=== PATIENT | female | born 1980 | race Caucasian/White ===

== ENCOUNTER 2019-06-16 06:50 | Emergency (ER) | payer SELFPAY ==
[~2019-06-16] VITALS: Ht 162.6 cm; Wt 101.0 kg
[~2019-06-16 06:50] MED LIST: ACET325T9 PO; ALBU8.5H6 IH; IBUP200T58 PO; MELO7.5T29 PO; PRED50TA PO; TAGAMENT; [UNRECOGNIZED DRUG - CODE] PO
[2019-06-16 07:01] VITALS: BP 139/93
[2019-06-16] MEDS ORDERED: TRAM50TA PO (07:17)
[2019-06-16] MEDS ORDERED: DICL50TA4 PO (07:17)
[2019-06-16] MEDS ORDERED: ORPH-16 PO (07:17)
--- NOTE | 2019-06-16 07:17 | PHYS DOC ---
Past History Past Medical History: No Pertinent History, GERD Past Surgical History: Other Additional Past Surgical Histo: abd exploratory lap Smoking: Cigarettes Alcohol Use: Occasionally Drug Use: Marijuana, Other Adult General Chief Complaint Chief Complaint: BACK PAIN - NO INJURY [facility] HPI Patient is a 38-year-old female who presents with complaint of lower back pain that started on Saturday. Patient states that she had just woken up with the pain. She denies any recent injuries and states that she has not been lifting anything heavy. She states that she just woke up with the pain. Patient states that she had hoped that by resting this week and the pain would resolve but she continues to have a lot of pain in her lower back and states that the pain is worsened if she tries to bend over. She rates pain at an 8 out of 10. She denies any loss of bowel or bladder control. She denies any saddle anesthesia.[] Review of Systems Review of Systems Constitutional: Denies fever or chills [] Respiratory: Denies cough or shortness of breath [] Cardiovascular: No additional information not addressed in HPI [] GI: Denies abdominal pain, nausea, vomiting, bloody stools or diarrhea [] : Denies dysuria or hematuria [] Musculoskeletal: Complains of lower back pain [] Integument: Denies rash or skin lesions [] Neurologic: Denies headache, focal weakness or sensory changes [] Allergies Allergies Allergies Coded Allergies Type Severity Reaction Last Updated Verified No Known Drug Allergies 08/26/14 No Physical Exam Physical Exam Constitutional: Well developed, well nourished, no acute distress, non-toxic appearance. [] Cardiovascular:Heart rate regular rhythm, no murmur [] Lungs & Thorax: Bilateral breath sounds clear to auscultation [] Skin: Warm, dry, no erythema, no rash. [] Back: There is tenderness to palpation in the lower lumbar paraspinal musculature bilaterally and significant tenderness in the right sacral sulcus. [] Extremities: No tenderness, no cyanosis, no clubbing, ROM intact. [] Neurologic: Alert and oriented X 3, no focal deficits noted. [] Current Patient Data Vital Signs Vital Signs Date Time Temp Pulse Resp B/P (MAP) Pulse Ox O2 Delivery O2 Flow Rate FiO2 06/16/ 07:01 98.2 100 18 139/93 (108) 100 Room Air EKG EKG [] Radiology/Procedures Radiology/Procedures [] Course & Med Decision Making Course & Med Decision Making Pertinent Labs and Imaging studies reviewed. (See chart for details) [] Dragon Disclaimer Dragon Disclaimer This electronic medical record was generated, in whole or in part, using a voice recognition dictation system. Departure Departure: Impression: Primary Impression: Acute low back pain Disposition: HOME, SELF-CARE Condition: STABLE Referrals: PCP,NO (PCP) Patient Instructions: Back Pain, Adult, Form - Excuse from Work, School, or Physical Activity Scripts Tramadol Hcl (TRAMADOL HCL) 50 Mg Tablet 50 MG PO PRN Q6HRS PRN for PAIN, #12 TAB Prov: MANOLO BUENROSTRO Jr. DO 06/16/19 Orphenadrine Citrate (ORPHENADRINE CITRATE) 100 Mg Tablet.er 1 TAB PO BID PRN for MUSCLE SPASMS, #14 TAB Prov: MANOLO BUENROSTRO Jr. DO 06/16/19 Diclofenac Sodium (DICLOFENAC SODIUM) 50 Mg Tablet.dr 1 TAB PO BID PRN for PAIN, #20 TAB Prov: MANOLO BUENROSTRO Jr. DO 06/16/19 Problem Qualifiers Primary Impression: Acute low back pain Back pain laterality: bilateral Sciatica presence: without sciatica Qualified Codes: M54.5 - Low back pain MANOLO BUENROSTRO Jr. DO Jun 16, 2019 07:17
[2019-06-16] MEDS ORDERED: ORPHENADRINE CITRATE 60 MG/2 ML VIAL. IM ONE (07:30)
[2019-06-16] MEDS ORDERED: KETOROLAC 60 MG/2 ML VIAL. IM ONE (07:30)
== END 2019-06-16 07:38 | disposition home or self-care (01) ==
LOC: ER 06:50
DX: M54.5 Low back pain (principal); K21.9 Gastro-esophageal reflux disease without esophagitis; F17.210 Nicotine dependence, cigarettes, uncomplicated
CPT/HCPCS: 96372; 99284; J1885; J2360

== ENCOUNTER 2019-12-09 20:58 | Emergency (ER) | payer SELFPAY ==
[~2019-12-09] VITALS: Ht 160 cm; Wt 100.0 kg
[~2019-12-09 20:58] MED LIST changes: +DICL50TA4 PO; +ORPH-16 PO; +TRAM50TA PO
[2019-12-09] MEDS ORDERED: IV NORMAL SALINE 1,000ML 1,000 ML IV ONE (21:15)
[2019-12-09] MEDS ORDERED: MORPHINE SULFATE 2 MG/ML DISP.SYRIN. IV ONE (21:15)
[2019-12-09] MEDS ORDERED: ONDANSETRON PF 4 MG/2 ML VIAL. IVP ONE ×2 (21:15→23:30)
[2019-12-09] MEDS ORDERED: IOHEXOL 300 MG/ML 75 ML VIAL. IV ONE (21:45)
[2019-12-09 21:46] LABS: BASO % 0 % (0-3); EOS % 0 % (0-3); HEMATOCRIT 42.1 % (36.0-47.0); HEMOGLOBIN 14.1 g/dL (12.0-15.5); LYMPH # 0.9 x10^3/uL (1.0-4.8); LYMPH % 7 % (24-48); MEAN CORPUSCULAR HEMOGLOBIN 30 pg (25-35); MEAN CORPUSCULAR HGB CONC 34 g/dL (31-37); MEAN CORPUSCULAR VOLUME 91 fL (79-100); MONO # 0.4 x10^3/uL (0.0-1.1); MONO % 3 % (0-9); NEUT # 11.7 x10^3uL (1.8-7.7); NEUT % 90 % (31-73); PLATELET COUNT 356 x10^3/uL (140-400); RED BLOOD COUNT 4.65 x10^6/uL (3.50-5.40); RED CELL DISTRIBUTION WIDTH 13.6 % (11.5-14.5); WHITE BLOOD COUNT 13.1 x10^3/uL (4.0-11.0)
[2019-12-09 21:53] LABS: CALCIUM 9.5 mg/dL (8.5-10.1); CREATININE 1.1 mg/dL (0.6-1.0); GFR 55.9; POTASSIUM 3.5 mmol/L (3.5-5.1)
[2019-12-09 21:54] LABS: BACTERIA,URINE 0 /HPF (0-FEW); BILIRUBIN,URINE NEG (NEG); CLARITY,URINE HAZY; COLOR,URINE YELLOW; GLUCOSE,URINE NEG (NEG); NITRITE,URINE NEG (NEG); RBC,URINE OCC /HPF (0-2); SQUAMOUS EPITHELIAL CELL,UR FEW /LPF; UROBILINOGEN,URINE 0.2 mg/dL (0.2 mg/dL)
[2019-12-09 21:59] LABS: TOTAL BILIRUBIN 0.3 mg/dL (0.2-1.0); TOTAL PROTEIN 7.9 g/dL (6.4-8.2)
[2019-12-09 22:11] LABS: % LYMPHS 12 % (24-48); % MONOS 5 % (0-10); % SEGS 83 % (35-66)
[2019-12-09 22:12] LABS: PLT ESTIMATE ADEQUATE (ADEQUATE)
[2019-12-09] MEDS ORDERED: MORPHINE SULFATE 4 MG/ML DISP.SYRIN. IV ONE (22:30)
--- NOTE | 2019-12-09 22:34 | RAD ---
CT scan of the abdomen and pelvis with contrast 12/09/2019 CLINICAL HISTORY: Epigastric pain. TECHNIQUE: After the intravenous administration of 75 cc of Omnipaque 300 only, contiguous, 5 mm axial sections were obtained through the abdomen and pelvis. One or more of the following individualized dose reduction techniques were utilized for this study: 1. Automated exposure control. 2. Adjustment of the mA and/or kV according to patient size. 3. Use of iterative reconstruction technique. FINDINGS: Comparison studies dated 08/26/2014. Images through the lung bases demonstrate minimal dependent subsegmental atelectasis bilaterally. The liver, spleen, pancreas, adrenal glands and kidneys are within normal limits. The abdominal aorta tapers normally. The gallbladder is distended. A 2.6 cm partially calcified gallstone is seen within the gallbladder near the neck. No free fluid or free air is seen within the abdomen. There is no evidence of bowel obstruction. The appendix is well-visualized and is within normal limits. Images through the pelvis demonstrate the urinary bladder distended with urine. A 6.4 cm solitary oval-shaped mass is seen in the left adnexa. A 11 cm low-attenuation mass is seen in the right adnexa which extends superiorly from the pelvis. On the previous examination the patient had a 16.6 cm adnexal mass which appeared to extend from the left adnexa. It is unclear whether these adnexal masses are new or have decreased in size since the previous examination due to treatment. Clinical correlation is recommended. No free fluid is seen. Minimal S-shaped curvature of the thoracolumbar spine is noted. IMPRESSION: 1. Cholelithiasis. 2. . Bilateral adnexal masses are seen, right greater than left. The right adnexal mass measures 11 cm in greatest diameter. On the previous examination the patient had a 16.6 cm left adnexal mass. It is unclear on today's study whether these adnexal masses have decreased in size due to treatment or are new. Clinical correlation is recommended. Electronically signed by: Steven Ricardo MD (12/09/2019 10:31 PM) [id number]
--- NOTE | 2019-12-09 22:41 | PHYS DOC ---
Past History Past Medical History: No Pertinent History, GERD Past Surgical History: Other Additional Past Surgical Histo: abd exploratory lap Smoking: Cigarettes Alcohol Use: Occasionally Drug Use: Marijuana, Other General Adult EDM: Chief Complaint: NAUSEA/VOMITING/DIARRHEA HPI: HPI: 39-year-old female presents with epigastric abdominal pain. Patient states that the pain started around 1:30 PM. She then started vomiting around 2:30 PM. This is continued until arrival in the emergency room. She is vomiting in the ER. The patient is a unable to keep down any liquids or solids. She believes that the vomiting is due to the pain. It is a deep cramping sensation. No history of pancreatitis. She still has her gallbladder. She rates the pain 8 out of 10. She denies fever or chills. Review of Systems: Review of Systems: Constitutional: Denies fever or chills Eyes: Denies change in visual acuity HENT: Denies nasal congestion or sore throat Respiratory: Denies cough or shortness of breath Cardiovascular: Denies chest pain or edema GI: Epigastric abdominal pain, nausea, vomiting. Denies bloody stools or diarrhea : Denies dysuria Musculoskeletal: Denies back pain or joint pain Integument: Denies rash Neurologic: Denies headache, focal weakness or sensory changes Endocrine: Denies polyuria or polydipsia Lymphatic: Denies swollen glands Psychiatric: Denies depression or anxiety Heart Score: Risk Factors: Risk Factors: DM, Current or recent (<one month) smoker, HTN, HLP, family history of CAD, obesity. Risk Scores: Score 0 - 3: 2.5% MACE over next 6 weeks - Discharge Home Score 4 - 6: 20.3% MACE over next 6 weeks - Admit for Clinical Observation Score 7 - 10: 72.7% MACE over next 6 weeks - Early Invasive Strategies Current Medications: Current Meds: Current Medications Medications (Trade) Dose Ordered Sig/Max Start Time Stop Time Status Last Admin Dose Admin Iohexol (Omnipaque 300 Mg/ml) 75 ml 1X ONCE 12/09/19 21:45 12/09/19 21:46 DC 12/09/19 21:48 75 ML Morphine Sulfate (Morphine 2mg Syringe) 2 mg 1X ONCE 12/09/19 21:15 12/09/19 21:17 DC 12/09/19 21:27 2 MG Morphine Sulfate (Morphine 4mg Syringe) 4 mg 1X ONCE 12/09/19 22:30 12/09/19 22:31 DC 12/09/19 22:31 4 MG Ondansetron HCl (Zofran) 4 mg 1X ONCE 12/09/19 21:15 12/09/19 21:17 DC 12/09/19 21:26 4 MG Sodium Chloride 1,000 ml @ 1,000 mls/hr 1X ONCE 12/09/19 21:15 12/09/19 22:14 DC 12/09/19 21:27 1,000 MLS/HR Allergies: Allergies: Allergies Coded Allergies Type Severity Reaction Last Updated Verified No Known Drug Allergies 08/26/14 No Physical Exam: PE: Constitutional: Well developed, obese, well nourished, no acute distress, non- toxic appearance. [] HENT: Normocephalic, atraumatic, bilateral external ears normal, oropharynx moist, no oral exudates, nose normal. [] Eyes: PERRLA, EOMI, conjunctiva normal, no discharge. [] Neck: Normal range of motion, no tenderness, supple, no stridor. [] Cardiovascular: Heart rate regular rhythm, no murmur [] Lungs & Thorax: Bilateral breath sounds clear to auscultation [] Abdomen: Bowel sounds normal, soft, moderate epigastric tenderness, no masses, no pulsatile masses. [] Skin: Warm, dry, no erythema, no rash. [] Back: No tenderness, no CVA tenderness. [] Extremities: No tenderness, no cyanosis, no clubbing, ROM intact, no edema. [] Neurologic: Alert and oriented X 3, normal motor function, normal sensory function, no focal deficits noted. [] Psychologic: Affect normal, judgement normal, mood normal. [] Current Patient Data: Labs: Laboratory Tests Test 12/09/19 21:00 12/09/19 21:23 12/09/19 21:30 Urine Collection Type Unknown Urine Color Yellow Urine Clarity Hazy Urine pH 6.0 Urine Specific [place] >=1.030 Urine Protein 30 mg/dl (NEG-TRACE) Urine Glucose (UA) Neg mg/dL (NEG) Urine Ketones (Stick) 15 mg/dL (NEG) Urine Blood Trace (NEG) Urine Nitrite Neg (NEG) Urine Bilirubin Neg (NEG) Urine Urobilinogen Dipstick 0.2 mg/dL (0.2 mg/dL) Urine Leukocyte Esterase Neg (NEG) Urine RBC Occ /HPF (0-2) Urine WBC 1-4 /HPF (0-4) Urine Squamous Epithelial Cells Few /LPF Urine Bacteria 0 /HPF (0-FEW) Urine Mucus Marked /LPF POC Urine HCG, Qualitative hcg negative (Negative) White Blood Count 13.1 x10^3/uL (4.0-11.0) H Red Blood Count 4.65 x10^6/uL (3.50-5.40) Hemoglobin 14.1 g/dL (12.0-15.5) Hematocrit 42.1 % (36.0-47.0) Mean Corpuscular Volume 91 fL (79-100) Mean Corpuscular Hemoglobin 30 pg (25-35) Mean Corpuscular Hemoglobin Concent 34 g/dL (31-37) Red Cell Distribution Width 13.6 % (11.5-14.5) Platelet Count 356 x10^3/uL (140-400) Neutrophils (%) (Auto) 90 % (31-73) H Lymphocytes (%) (Auto) 7 % (24-48) L Monocytes (%) (Auto) 3 % (0-9) Eosinophils (%) (Auto) 0 % (0-3) Basophils (%) (Auto) 0 % (0-3) Neutrophils # (Auto) 11.7 x10^3uL (1.8-7.7) H Lymphocytes # (Auto) 0.9 x10^3/uL (1.0-4.8) L Monocytes # (Auto) 0.4 x10^3/uL (0.0-1.1) Eosinophils # (Auto) 0.0 x10^3/uL (0.0-0.7) Basophils # (Auto) 0.0 x10^3/uL (0.0-0.2) Segmented Neutrophils % 83 % (35-66) H Lymphocytes % 12 % (24-48) L Monocytes % 5 % (0-10) Platelet Estimate Adequate (ADEQUATE) Sodium Level 141 mmol/L (136-145) Potassium Level 3.5 mmol/L (3.5-5.1) Chloride Level 105 mmol/L (98-107) Carbon Dioxide Level 21 mmol/L (21-32) Anion Gap 15 (6-14) H Blood Urea Nitrogen 16 mg/dL (7-20) Creatinine 1.1 mg/dL (0.6-1.0) H Estimated GFR (Cockcroft-Gault) 55.9 BUN/Creatinine Ratio 15 (6-20) Glucose Level 153 mg/dL (70-99) H Calcium Level 9.5 mg/dL (8.5-10.1) Total Bilirubin 0.3 mg/dL (0.2-1.0) Aspartate Amino Transferase (AST) 16 U/L (15-37) Alanine Aminotransferase (ALT) 20 U/L (14-59) Alkaline Phosphatase 83 U/L (46-116) Total Protein 7.9 g/dL (6.4-8.2) Albumin 4.0 g/dL (3.4-5.0) Albumin/Globulin Ratio 1.0 (1.0-1.7) Lipase 87 U/L (73-393) Vital Signs: Vital Signs Date Time Temp Pulse Resp B/P (MAP) Pulse Ox O2 Delivery O2 Flow Rate FiO2 12/09/19 22:31 18 100 Room Air EKG: EKG: [] Radiology/Procedures: Radiology/Procedures: [] Course & Med Decision Making: Course & Med Decision Making Pertinent Labs and Imaging studies reviewed. (See chart for details) The patient's labs are significant for slightly elevated white count. Her liver enzymes are within normal limits. Her CT scan shows 2 adnexal masses. See official read for more details. She is not having pain in this region. She also has an obvious cholelithiasis without current evidence of cholecystitis or obstruction. Have given the patient 6 mg of morphine and a milligram of Dilaudid to control her pain. She denies being on pain medication prior to this visit. She does not have a record in the narcotic tracking database. I spoke with Dr. Jefry vance here and he recommends the patient be transferred to [facility]. The patient is okay with this plan. I spoke with Dr. Dyer at [facility] and he has accepted the patient for transfer and admission. [] Jennifer Disclaimer: Jennifer Disclaimer: This electronic medical record was generated, in whole or in part, using a voice recognition dictation system. Departure Departure: Impression: Primary Impression: Epigastric abdominal pain Additional Impressions: Cholelithiases Qualified Codes: K80.20 - Calculus of gallbladder without cholecystitis without obstruction Adnexal mass Disposition: 02 XFER S[facility]-TRM HOSP Condition: STABLE Referrals: PCP,NO (PCP) Justification of Admission: Justification of Admission: Justification of Admission Dx: N/A JORDIN WALTER DO Dec 09, 2019 22:41
[2019-12-09] MEDS ORDERED: HYDROmorphone PF 1 MG/ML DISP.SYRIN IVP ONE (23:00)
[2019-12-10 00:53] VITALS: BP 135/97
[2019-12-10] MEDS ORDERED: HYDROmorphone PF 1 MG/ML DISP.SYRIN IVP ONE (01:30)
== END 2019-12-10 01:28 | disposition short-term general hospital (02) ==
LOC: ER 20:58
DX: K80.20 Calculus of gallbladder without cholecystitis without obstruction (principal); R10.13 Epigastric pain; K21.9 Gastro-esophageal reflux disease without esophagitis; F17.210 Nicotine dependence, cigarettes, uncomplicated
CPT/HCPCS: 36415; 74177; 80053; 81001; 81025; 83690; 85007; 85025; 96361; 96374; 96375; 96376; 99285; J1170; J2270; J2405; J7030; Q9967

== ENCOUNTER → 2020-10-10 | Outpatient (CLI) | payer BC ==
--- NOTE | 2020-10-10 11:06 | RAD ---
Two-view right hip study Clinical indications: Right hip pain for one to 2 months. No known injury. FINDINGS: No acute fracture or dislocation or lytic process is seen. No significant arthritic change is evident. IMPRESSION: No acute fracture. Electronically signed by: Blair Hair MD (10/10/2020 11:03 AM) [id number]
== END ==
LOC: RAD 09:23
PROVIDERS: ATTEND Family Medicine
DX: M25.551 Pain in right hip (principal)
CPT/HCPCS: 73502